=== PATIENT | female | born 1970 | race Caucasian/White ===

== ENCOUNTER → 2020-07-30 08:55 | Outpatient (CLI) | payer OTHER, SELFPAY ==
[2020-07-30 09:40] LABS: Add Manual Diff / Slide Review NO; Basophils Absolute Auto 0 /uL (0-100); Basophils Percent Auto 0.4 % (0-2); Eosinophils Absolute Auto 200 /uL (0-450); Eosinophils Percent Auto 2.9 % (2-4); Hematocrit 39.2 % (36-46); Hemoglobin 13.3 g/dL (12.0-16.0); Lymphocytes Absolute Auto 1700 /uL (1100-4500); Lymphocytes Percent Auto 27.7 % (25-40); Mean Corpuscular Hemoglobin 30.4 PG (26-34); Mean Corpuscular Volume 89.5 fL (80-100); Monocytes Absolute Auto 400 /uL (0-900); Monocytes Percent Auto 6.1 % (3-14); Neutrophils Absolute Auto 3900 /uL (1500-7000); Neutrophils Percent Auto 62.9 % (50-75); Platelet Count 227 X10^3/uL (150-400); Red Blood Cell Count 4.38 X10^6/uL (4.0-5.2); Red Cell Distribution Width 13.2 % (11.6-14.8); White Blood Cell Count 6.3 X10^3/uL (4.5-11.0)
[2020-07-30 09:57] LABS: Blood Urea Nitrogen 12 mg/dL (7-17); Calcium 9.5 mg/dL (8.4-10.2); Carbon Dioxide 31 mmol/L (22-32); Chloride 107 mmol/L (98-107); Cholesterol 194 mg/dL (140-199); Estimated Glomerular Filt Rate > 60.0 mL/min (>60); Glucose 92 mg/dL (70-100); HDL Cholesterol 43 mg/dL (40-60); HEMOLYSIS < 15 (0-50); LDL Cholesterol Calculated 129 mg/dL (<100); Potassium 4.8 mmol/L (3.4-5.1); Sodium 144 mmol/L (137-145); Triglycerides 112 mg/dL (35-150)
[2020-07-30 10:31] LABS: TSH w/ Reflex to FT4 2.01 uIU/mL (0.47-4.68)
== END ==
PROVIDERS: PCP Family Medicine; Referring Provider Family Medicine; Visit Provider Family Medicine
DX: Z13.220 Encounter for screening for lipoid disorders (principal); F32.5 Major depressive disorder, single episode, in full remission
CPT/HCPCS: 36415; 80048; 80061; 84443; 85025

== ENCOUNTER → 2021-01-04 14:57 | Outpatient (CLI) | payer OTHER, SELFPAY ==
[2021-01-04 16:33] LABS: COVID19 -Nasal RAPID Negative (Negative)
== END ==
PROVIDERS: PCP Family Medicine; Visit Provider Registered Nurse
DX: Z20.822 Contact with and (suspected) exposure to COVID-19 (principal)
CPT/HCPCS: 87635

== ENCOUNTER → 2021-01-14 07:28 | Outpatient (CLI) | payer OTHER, SELFPAY ==
[2021-01-14 08:10] LABS: Add Manual Diff / Slide Review NO; Basophils Absolute Auto 0 /uL (0-100); Basophils Percent Auto 0.4 % (0-2); Eosinophils Absolute Auto 100 /uL (0-450); Eosinophils Percent Auto 2.5 % (2-4); Hematocrit 39.7 % (36-46); Lymphocytes Absolute Auto 2000 /uL (1100-4500); Lymphocytes Percent Auto 34.1 % (25-40); Mean Corpuscular HGB Conc 32.7 % (30-36); Mean Corpuscular Volume 88.7 fL (80-100); Monocytes Absolute Auto 400 /uL (0-900); Monocytes Percent Auto 6.1 % (3-14); Neutrophils Absolute Auto 3400 /uL (1500-7000); Neutrophils Percent Auto 56.9 % (50-75); Platelet Count 234 X10^3/uL (150-400); Red Blood Cell Count 4.48 X10^6/uL (4.0-5.2); Red Cell Distribution Width 13.4 % (11.6-14.8)
[2021-01-14 08:26] LABS: Alanine Aminotransferase 17 IU/L (<35); Albumin 4.4 g/dL (3.5-5.0); Albumin Globulin Ratio 1.4 (1.0-2.8); Alkaline Phosphatase 56 U/L (38-126); Aspartate Aminotransferase 21 IU/L (14-36); BUN Creatinine Ratio 15.8 (6-22); Bilirubin Total 0.3 mg/dL (0.2-1.3); Blood Urea Nitrogen 12 mg/dL (7-17); Calcium 9.3 mg/dL (8.4-10.2); Carbon Dioxide 30 mmol/L (22-32); Chloride 106 mmol/L (98-107); Cholesterol 187 mg/dL (140-199); Estimated Glomerular Filt Rate > 60.0 mL/min (>60); Globulin 3.1 g/dL (1.7-4.1); Glucose 99 mg/dL (70-100); HDL Cholesterol 41 mg/dL (40-60); HEMOLYSIS < 15 (0-50); LDL Cholesterol Calculated 133 mg/dL (<100); Potassium 4.8 mmol/L (3.4-5.1); Sodium 141 mmol/L (137-145); Total Protein 7.5 g/dL (6.3-8.2); Triglycerides 67 mg/dL (35-150)
[2021-01-14 08:34] LABS: Rheumatoid Factor < 8.6 IU/mL (<12.0)
[2021-01-14 09:00] LABS: Free T4, Direct Thyroxine 0.78 ng/dL (0.78-2.19)
[2021-01-14 09:13] LABS: Thyroid Stimulating Hormone 1.81 uIU/mL (0.47-4.68)
[2021-01-17 17:51] LABS: ANA Screen, IFA Negative (.)
[2021-01-17 21:58] LABS: CCP Antibodies IgG/IgA 3 units (0-19)
== END ==
PROVIDERS: PCP Family Medicine; Referring Provider Family Medicine; Visit Provider Family Medicine
DX: M25.50 Pain in unspecified joint (principal); R53.83 Other fatigue
CPT/HCPCS: 36415; 80053; 80061; 84439; 84443; 84550; 85025; 86038; 86200; 86430; 86617

== ENCOUNTER → 2021-02-02 09:40 | Outpatient (CLI) | payer OTHER, SELFPAY ==
[2021-02-02 10:10] LABS: COVID19 -Nasal RAPID Negative (Negative)
== END ==
PROVIDERS: PCP Family Medicine; Visit Provider Student in an Organized Health Care Education/Training Program
DX: Z20.822 Contact with and (suspected) exposure to COVID-19 (principal)
CPT/HCPCS: 87635

== ENCOUNTER → 2021-04-09 11:03 | Outpatient (CLI) | payer OTHER, SELFPAY ==
[2021-04-09 12:10] LABS: COVID19 -Nasal RAPID Negative (Negative)
== END ==
PROVIDERS: PCP Family Medicine; Visit Provider Physician Assistant
DX: R19.7 Diarrhea, unspecified (principal)
CPT/HCPCS: 87635

== ENCOUNTER → 2021-04-09 11:13 | Outpatient (CLI) | payer OTHER, SELFPAY ==
[2021-04-09 11:31] LABS: Add Manual Diff / Slide Review NO; Basophils Absolute Auto 0 /uL (0-100); Basophils Percent Auto 0.4 % (0-2); Eosinophils Absolute Auto 100 /uL (0-450); Eosinophils Percent Auto 1.3 % (2-4); Hematocrit 40.5 % (36-46); Hemoglobin 13.3 g/dL (12.0-16.0); Lymphocytes Absolute Auto 1600 /uL (1100-4500); Lymphocytes Percent Auto 33.8 % (25-40); Mean Corpuscular Hemoglobin 29.2 PG (26-34); Mean Corpuscular Volume 88.6 fL (80-100); Monocytes Absolute Auto 400 /uL (0-900); Monocytes Percent Auto 7.8 % (3-14); Neutrophils Absolute Auto 2700 /uL (1500-7000); Neutrophils Percent Auto 56.7 % (50-75); Platelet Count 204 X10^3/uL (150-400); Red Blood Cell Count 4.57 X10^6/uL (4.0-5.2); Red Cell Distribution Width 13.9 % (11.6-14.8); White Blood Cell Count 4.8 X10^3/uL (4.5-11.0)
[2021-04-09 11:50] LABS: Alanine Aminotransferase 19 IU/L (<35); Albumin 4.3 g/dL (3.5-5.0); Albumin Globulin Ratio 1.3 (1.0-2.8); Alkaline Phosphatase 45 U/L (38-126); Aspartate Aminotransferase 25 IU/L (14-36); BUN Creatinine Ratio 14.5 (6-22); Bilirubin Total 0.3 mg/dL (0.2-1.3); Blood Urea Nitrogen 11 mg/dL (7-17); Calcium 9.4 mg/dL (8.4-10.2); Carbon Dioxide 28 mmol/L (22-32); Chloride 106 mmol/L (98-107); Estimated Glomerular Filt Rate > 60.0 mL/min (>60); Globulin 3.3 g/dL (1.7-4.1); Glucose 99 mg/dL (70-100); HEMOLYSIS < 15 (0-50); Lipase 77 U/L (23-300); Potassium 3.9 mmol/L (3.4-5.1); Sodium 140 mmol/L (137-145); Total Protein 7.6 g/dL (6.3-8.2)
== END ==
PROVIDERS: PCP Family Medicine; Referring Provider Physician Assistant; Visit Provider Physician Assistant
DX: R19.7 Diarrhea, unspecified (principal); Z20.822 Contact with and (suspected) exposure to COVID-19
CPT/HCPCS: 36415; 80053; 83690; 85025; 87635

== ENCOUNTER → 2021-04-11 07:20 | Outpatient (CLI) | payer OTHER, SELFPAY | PROVIDERS: PCP Family Medicine; Referring Provider Physician Assistant; Visit Provider Physician Assistant | DX: R19.7 Diarrhea, unspecified (principal) | CPT/HCPCS: 87045; 87177; 87899 ==

== ENCOUNTER → 2022-05-02 14:06 | Outpatient (CLI) | payer OTHER, SELFPAY | PROVIDERS: PCP Family Medicine; Visit Provider Physician Assistant | DX: R30.0 Dysuria (principal) | CPT/HCPCS: 87077; 87086; 87186 ==

== ENCOUNTER → 2022-08-21 07:30 | Outpatient (CLI) | payer OTHER, SELFPAY ==
--- NOTE | 2022-08-21 07:31 | DI.MG.S_ITS ---
BILATERAL DIGITAL SCREENING MAMMOGRAM 3D/2D WITH CAD: 08/21/2022 CLINICAL: Baseline by default. Family history of breast cancer. No prior exams were available for comparison. There are scattered areas of fibroglandular density in both breasts (category b / 25%-50% glandular tissue). Current study was also evaluated with a Computer Aided Detection (CAD) system. No significant masses, calcifications, or other findings are seen in either breast. IMPRESSION: NEGATIVE There is no mammographic evidence of malignancy. A 1 year screening mammogram is recommended. Based on the Tyrer Cuzick model (a risk assessment model) the patient's lifetime risk is 8.9% and her 10 year risk is 2.2%. According to the ACR, ACS, and NCCN guidelines, an annual breast MRI exam along with mammogram is recommended if the patient's lifetime risk is 20% or greater. This exam was interpreted at Station ID: [id number]. NOTE: For mammograms, a report in lay terms will be sent to the patient. Approximately 15% of breast malignancies will not be visualized mammographically. In the management of a palpable breast mass, a negative mammogram must not discourage biopsy of a clinically suspicious lesion. Electronically Signed By: Martha scales/trang:08/21/2022 11:49:28 letter sent: Normal Exam ACR BI-RADS Category 1: Negative 3341F
== END ==
PROVIDERS: PCP Family Medicine; Referring Provider Family Medicine; Visit Provider Family Medicine
DX: Z12.31 Encounter for screening mammogram for malignant neoplasm of breast (principal); Z80.3 Family history of malignant neoplasm of breast
CPT/HCPCS: 77063; 77067

== ENCOUNTER → 2022-09-25 15:44 | Outpatient (CLI) | payer OTHER, SELFPAY ==
[2022-09-25 16:27] LABS: COVID19 -Nasal RAPID Negative (Negative)
== END ==
PROVIDERS: PCP Family Medicine; Visit Provider Surgery
DX: Z01.812 Encounter for preprocedural laboratory examination (principal); Z20.822 Contact with and (suspected) exposure to COVID-19
CPT/HCPCS: 87635; C9803

== ENCOUNTER 2022-09-26 11:37 | Day surgery (SDC) | payer OTHER, SELFPAY ==
[2022-09-26] VITALS (7 sets, daily range): BP systolic 84–110; BP diastolic 51–72; PULSE 49–61; RESP 12–16; TEMP 36.1–36.7; O2SAT 97–100; BMI 30.7
--- NOTE | 2022-09-26 | PATH_ITS ---
[facility] Accession Number: [id number] . 01 Material submitted: . rectum - RECTAL POLYP . 01 Diagnosis: Rectal Polyp, Biopsy: Hyperplastic polyp. [facility] 09/29/2022 1625 Local . 01 Electronically signed: . Curt Hayes MD, PhD, Pathologist NPI- [id number] . 01 Gross description: . RECTAL POLYP: Received in formalin is 1 fragment(s) of lamb, soft tissue measuring 0.4 x 0.3 x 0.3 cm submitted entirely in 1 cassette(s) /CPE 09/27/2022 1107 Local . 01 Pathologist provided ICD-10: K62.1 . 01 CPT . 881019 Specimen Comment: A courtesy copy of this report has been sent to [phone] Performed at: 01 [facility] [address] [place] [address] [id number] MD Felix Major MD Phone: [phone]
[2022-09-26] MEDS: LACTATED RINGERS 1,000 ML 200 ML IV (12:02)
--- NOTE | 2022-09-26 12:56 | PM.HP.1 ---
History of Present Illness History of Present Illness Date Patient Seen: 09/26/22 Time Patient Seen: 12:56 Chief complaint: WIC Narrative: The patient presents for colorectal screening. They have never had any previous examination for such. No personal or family history of colon cancer. She recently had an episode of left lower quadrant pain suspected diverticulitis. She has occasional abdominal bloating but no blood per rectum no unintentional weight loss. Patient History Medical History Abdominal bloating Actinic keratoses (~2015) Acute right-sided thoracic back pain Arthralgia Costochondritis, acute Depression (~2011) Family history of breast cancer gene mutation in first degree relative Fatigue Foot pain (~2007) Malaise and fatigue Physical exam, annual Screening for breast cancer Screening for hyperlipidemia Seborrheic keratosis Segmental and somatic dysfunction of rib cage Thoracic region somatic dysfunction Tinea pedis Surgical History Anesthesia History of toe surgery (~08/2017) Family & Social History Family History Grandfather History of emphysema Grandmother Hypertension Grandfather Alzheimer's disease Parkinson's disease Social History: household members spouse Tobacco & Substance use: Smoking Status Former smoker alcohol intake current alcohol intake frequency holiday/special occasion Substance Use Type does not use Meds Home Medications and Allergies Home Medications Medication Instructions Recorded Confirmed Type sodium,potassium,mag sulfates 17.5 See Rx Instructions PO .COMPLEX 09/25/22 09/26/22 Rx gram-3.13 gram-1.6 gram oral soln #354 mL (Suprep Bowel Prep Kit) Allergies Allergy/AdvReac Type Severity Reaction Status Date / Time No Known Drug Allergies Allergy Verified 09/26/22 11:51 Exam Vital Signs (past 8 hours): - 09/26/22 11:57 Temperature 98.1 F Pulse Rate 61 Respiratory Rate 12 Blood Pressure 103/72 Pulse Oximetry 97 Oxygen Delivery Method Room Air Oxygen Delivery Method Room Air Narrative Exam Narrative: General adult woman alert oriented no acute distress Abdomen soft nontender nondistended Assessment & Plan Assessment & Plan narrative: The patient requires colorectal screening and colonoscopy is recommended. Technical details were discussed. Risks, benefits, alternatives explained. Risks including but not limited to myocardial infarction, aspiration, bleeding, pain, missed lesion, incomplete examination, need for further radiographic studies, colonic perforation, and need for major abdominal surgery were discussed. All questions were answered to their satisfaction, and they are in agreement with this plan. Time Spent With Patient Critical Care time: I spent a total of [] minutes of critical care time on this patient's care today; this time is exclusive of procedural time.
--- NOTE | 2022-09-26 13:37 | PM.OP.COLON ---
Operative Date/Time/Diagnoses Date of procedure: 09/26/22 Time of procedure: 13:37 Pre-op diagnosis: Screening colonoscopy Post-op diagnosis: same Procedure & Clinicians Study performed: Colonoscopy Same procedure as scheduled: Yes Indications: Screening Surgeon: Bassem Martinez Procedure Notes Procedure in detail: The history and physical was performed/updated and the patient is ASA class is 1. The procedure was discussed in detail with the patient. Potential risks complications including infection, bleeding, missed diagnosis, perforation, need for surgery, and were explained. Their questions were answered and informed consent was obtained. Patient was brought to the procedure room and placed standard monitoring equipment. The patient's vital signs were monitored continuously throughout the entire procedure. Prior to starting time-out was performed. The patient was placed in the left lateral recumbent position. Procedural sedation was administered by anesthesia. Examination began with a thorough inspection of the perianal area there was no evidence of fissures, fistulae, external hemorrhoids or cutaneous malignancy. The colonoscopy scope was then placed into the anal canal and was advanced to the cecum, which was identified by the ileocecal valve, the appendiceal orifice and the confluence of the taenia. The scope was then slowly withdrawn examining colon thoroughly in all directions, irrigating it of any residual stool. FINDINGS 1. Proximal rectum-5 mm pedunculated polyp removed with cold snare 2. Sigmoid mild diverticulosis The patient tolerated the procedure well. They will be discharged once criteria are met. The prep was of good/excellent quality. The withdrawl time was 7 minutes. Specimen(s): other (Rectal polyp) Complications: none Impression: Colonic polyp Post-procedure Recommendations: High fiber diet Plan for aftercare: Follow depending on pathology findings Disposition: same day surgery
== END 2022-09-26 14:53 | disposition home or self-care (01) ==
PROVIDERS: PCP Family Medicine; Referring Provider Surgery; Visit Provider Surgery
PROC: 0DJD8ZZ Inspection of Lower Intestinal Tract, Via Natural or Artificial Opening Endoscopic (ICD-10-PCS; CPT 45378; principal; 2022-09-26 12:45)
DX: Z12.11 Encounter for screening for malignant neoplasm of colon (principal); K57.30 Diverticulosis of large intestine without perforation or abscess without bleeding; K62.1 Rectal polyp
CPT/HCPCS: 45385; J2704

== ENCOUNTER → 2023-04-16 07:19 | Outpatient (CLI) | payer OTHER, SELFPAY ==
[2023-04-16 08:00] LABS: Add Manual Diff / Slide Review NO; Basophils Absolute Auto 0 /uL (0-100); Basophils Percent Auto 0.7 % (0-2); Eosinophils Absolute Auto 100 /uL (0-450); Eosinophils Percent Auto 1.5 % (2-4); Hematocrit 40.5 % (36-46); Hemoglobin 13.6 g/dL (12.0-16.0); Lymphocytes Absolute Auto 2000 /uL (1100-4500); Lymphocytes Percent Auto 36.4 % (25-40); Mean Corpuscular HGB Conc 33.6 % (30-36); Mean Corpuscular Hemoglobin 29.7 PG (26-34); Mean Corpuscular Volume 88.3 fL (80-100); Monocytes Absolute Auto 300 /uL (0-900); Monocytes Percent Auto 5.2 % (3-14); Neutrophils Absolute Auto 3000 /uL (1500-7000); Neutrophils Percent Auto 56.2 % (50-75); Platelet Count 219 X10^3/uL (150-400); Red Blood Cell Count 4.58 X10^6/uL (4.0-5.2); Red Cell Distribution Width 13.7 % (11.6-14.8); White Blood Cell Count 5.4 X10^3/uL (4.5-11.0)
[2023-04-16 08:37] LABS: Alanine Aminotransferase 29 IU/L (<35); Albumin 4.1 g/dL (3.5-5.0); Albumin Globulin Ratio 1.4 (1.0-2.8); Alkaline Phosphatase 51 U/L (38-126); Aspartate Aminotransferase 23 IU/L (14-36); BUN Creatinine Ratio 14.8 (6-22); Bilirubin Total 0.4 mg/dL (0.2-1.3); Blood Urea Nitrogen 12 mg/dL (7-17); Calcium 9.3 mg/dL (8.4-10.2); Carbon Dioxide 29 mmol/L (22-32); Chloride 104 mmol/L (98-107); Cholesterol 216 mg/dL (140-199); Estimated Glomerular Filt Rate > 60 mL/min (>60); Glucose 99 mg/dL (70-100); HDL Cholesterol 49 mg/dL (40-60); HEMOLYSIS < 15 (0-50); LDL Cholesterol Calculated 139 mg/dL (<100); Potassium 4.6 mmol/L (3.4-5.1); Sodium 140 mmol/L (137-145); Total Protein 7.1 g/dL (6.3-8.2); Triglycerides 141 mg/dL (35-150)
[2023-04-16 08:39] LABS: TSH w/ Reflex to FT4 2.69 uIU/mL (0.47-4.68)
== END ==
PROVIDERS: PCP Family Medicine; Referring Provider Family Medicine; Visit Provider Family Medicine
DX: Z13.220 Encounter for screening for lipoid disorders (principal); Z13.29 Encounter for screening for other suspected endocrine disorder; Z68.32 Body mass index [BMI] 32.0-32.9, adult
CPT/HCPCS: 36415; 80053; 80061; 84443; 85025

== ENCOUNTER 2023-09-04 11:48 | Emergency (ER) | payer OTHER, SELFPAY ==
[2023-09-04 11:55] VITALS: BP 165/95; PULSE 76; RESP 18; TEMP 36.8; O2SAT 99; BMI 30.9
--- NOTE | 2023-09-04 11:57 | DI.RAD.S_ITS ---
PROCEDURE: XR CHEST 1V INDICATIONS: chest pain TECHNIQUE: One view of the chest was acquired. COMPARISON: None. FINDINGS: Surgical changes and devices: None. Lungs and pleura: Lungs are clear. No pleural effusions or pneumothorax. Mediastinum: Mediastinal contours appear normal. Heart size is normal. Bones and chest wall: No suspicious bony lesions. Overlying soft tissues appear unremarkable. IMPRESSION: No acute cardiopulmonary process. Dictated by: Leonel Melendez M.D. on 09/04/2023 at 13:08 Approved by: Leonel Melendez M.D. on 09/04/2023 at 13:09
[2023-09-04 12:03] VITALS: PULSE 75; RESP 25
[2023-09-04 12:04] VITALS: BP 136/76; PULSE 76; RESP 16
[2023-09-04] MEDS: ASPIRIN 81 MG CHEW TAB 324 MG PO (12:12)
--- NOTE | 2023-09-04 12:13 | PC.NURSE ---
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
--- NOTE | 2023-09-04 12:19 | ED.CHESTPAIN ---
HPI - Chest Pain General Chief Complaint: Chest Pain Stated Complaint: chest pain Time Seen by Provider: 09/04/23 12:02 Source: patient Mode of arrival: Ambulatory Limitations: no limitations History of Present Illness HPI narrative: 53-year-old female with no reported past medical history presents by private vehicle for right-sided chest pain. Patient states that she has had intermittent chest pains over the last year on her right side, she stated that she promised her son should be evaluated the next time this happened. She was driving to school when she felt a pain in her right chest and neck tightness. Patient is currently pain-free. Patient states that the worst of the pain is between her spine and her scapula. Described as tight, nonradiating. Denies personal or family history of heart disease, never smoker, she gets annual blood work at her physicals and has always been given a clean bill of health. Patient underwent bilateral breast reduction 5 weeks prior, complicated by left breast hematoma. Left sided drain placed 2 weeks ago and subsequently removed Related Data Previous Rx's Medication Instructions Recorded nystatin 100,000 unit/gram topical 1 applic topical BID PRN rash #60 01/17/23 powder grams Allergies Allergy/AdvReac Type Severity Reaction Status Date / Time No Known Drug Allergies Allergy Verified 04/10/23 11:17 Review of Systems Review of Systems Narrative: CONSTITUTIONAL- Denies: fever, chills, fatigue HEENT- Denies: sore throat, nosebleed, vision changes RESPIRATORY- Denies: shortness of breath, cough, wheezing CARDIAC-reports: Chest pain Denies: edema, orthopnea GI- Denies: abdominal pain, nausea, vomiting, constipation, diarrhea - Denies: frequency, dysuria, hematuria, flank pain MSK- Denies: extremity pain, extremity swelling, joint pain, joint swelling SKIN- Denies: rash, itching, burn, swelling NEUROLOGICAL- Denies: headache, numbness, weakness, dizziness PSYCHIATRIC- Denies: anxiety, depression, suicidal ideation, homicidal ideation Patient History Medical History (Updated 09/04/23 @ 13:36 by Fifi Sierra MD) Symptoms, such as flushing, sleeplessness, headache, lack of concentration, associated with the menopause BMI 32.0-32.9,adult Abdominal pannus Strain of psoas muscle Left foot pain Large breasts Chronic neck pain Chronic left-sided thoracic back pain Rash and nonspecific skin eruption Screening for breast cancer Segmental and somatic dysfunction of rib cage Costochondritis, acute Abdominal bloating Malaise and fatigue Fatigue Arthralgia Physical exam, annual Seborrheic keratosis Foot pain (~2007) Screening for hyperlipidemia Actinic keratoses (~2015) Thoracic region somatic dysfunction Tinea pedis Depression (~2011) Family history of breast cancer gene mutation in first degree relative Surgical History Anesthesia History of toe surgery (~08/2017) Family History Grandfather History of emphysema Grandmother Hypertension Grandfather Alzheimer's disease Parkinson's disease Social History household members: spouse Smoking Status: Former smoker alcohol intake: current substance use type: does not use Smoking Status: Former smoker alcohol intake frequency: holidays/special occasions only Substance Use Type: does not use Exam Initial Vital Signs Initial Vital Signs: Vital Signs Temperature 98.3 F 09/04/23 11:55 Pulse Rate 76 09/04/23 11:55 Respiratory Rate 18 09/04/23 11:55 Blood Pressure 165/95 H 09/04/23 11:55 Pulse Oximetry 99 09/04/23 11:55 Oxygen Delivery Method Room Air 09/04/23 11:55 Const: Awake, alert, no acute distress, nontoxic appearing Eyes: PERRL, EOMI, conjunctiva normal ENT: Atraumatic, dentition normal, mucous membranes moist Cardiac: regular rate, regular rhythm RESP: unlabored, clear bilaterally, no wheezing GI: Atraumatic, soft, nontender, nondistended, no rebound, no guarding MSK: Atraumatic, full range of motion, pulses equal Skin: Warm, Dry, intact, no rashes Neuro: AO x3, CN II-XII grossly intact, moves all extremities Psych: affect normal, mood normal, not suicidal, not homicidal Scores HEART Score Heart Score history: Slightly Suspicious Heart Score EKG: Normal Heart Score Age: 45-64 years old Heart Score risk factors: 1-2 risk factors Heart Score troponin: < or = to normal limit Heart Score Total: 2 Course Course Course Narrative: Well-appearing patient with episode of right-sided chest pain, none currently. EKGs normal sinus rhythm without concerning findings. Heart score 2 based on age and BMI. Orders Ordered: ED Orders 09/04/23 11:57 XR chest 1V Stat 09/04/23 12:02 EKG-12 Lead Stat 09/04/23 12:12 Complete Blood Count AUTO DIFF Stat Comprehensive Metabolic Panel Stat Lipase Stat Magnesium Stat PTT Partial Thromboplastin Stanley Stat Prothrombin Time INR Stat Troponin & CK Cardiac Panel Stat Discontinued Medications Aspirin (Aspirin 81 Mg Chew Tab) 324 mg PO NOW ONE Stop: 09/04/23 11:58 Last Admin: 09/04/23 12:12 Dose: 243 mg Documented By: AMV Reevaluation(s) Reevaluation #1: Laboratory work is completely unremarkable. Chest x-ray negative for acute findings. Patient informed of all lab and imaging findings. Overall low-risk with heart score 2. Patient reassured of normal labs and normal imaging. She will call her primary care doctor's office and we will follow up with a personal loan specialist. Referral provided. ED return precautions discussed at bedside. Patient expressed understanding of the plan and is in agreement at this time. All questions answered at the time of discharge. Vital Signs Vital signs: Vital Signs - 8 hr 09/04/23 11:55 09/04/23 12:03 09/04/23 12:04 Temperature 98.3 F Pulse Rate 76 75 76 Respiratory Rate 18 25 H 16 Blood Pressure 165/95 H Pulse Oximetry 99 Oxygen Delivery Method Room Air 09/04/23 12:04 09/04/23 12:30 09/04/23 12:30 Temperature Pulse Rate 65 Respiratory Rate Blood Pressure 136/76 122/69 Pulse Oximetry 98 Oxygen Delivery Method 09/04/23 13:00 09/04/23 13:00 Temperature Pulse Rate 61 Respiratory Rate 16 Blood Pressure 110/68 Pulse Oximetry 98 Oxygen Delivery Method MDM - Chest Pain Differential Diagnosis Differential diagnosis: Likely fracture of rib, pneumothorax and atypical chest pain Lab Data 09/04/23 12:12 09/04/23 12:12 Labs: Lab Results 09/04/23 Range/Units 12:12 WBC 6.7 (4.5-11.0) X10^3/uL RBC 4.19 (4.0-5.2) X10^6/uL Hgb 12.4 (12.0-16.0) g/dL Hct 36.7 (36-46) % MCV 87.7 (80-100) fL MCH 29.5 (26-34) PG MCHC 33.6 (30-36) % RDW 14.1 (11.6-14.8) % Plt Count 215 (150-400) X10^3/uL Neut % (Auto) 63.9 (50-75) % Lymph % (Auto) 27.3 (25-40) % [place] % (Auto) 7.0 (3-14) % Eos % (Auto) 1.5 L (2-4) % Baso % (Auto) 0.3 (0-2) % Neut # (Auto) 4300 (5566-5987) /uL Lymph # (Auto) 1800 (0659-1621) /uL [place] # (Auto) 500 (0-900) /uL Eos # (Auto) 100 (0-450) /uL Baso # (Auto) 0 (0-100) /uL PT 12.0 (10.1-12.7) SECONDS INR 1.0 (0.9-1.3) APTT 34 (26-36) SECONDS Sodium 140 (137-145) mmol/L Potassium 3.6 (3.4-5.1) mmol/L Chloride 103 (98-107) mmol/L Carbon Dioxide 29 (22-32) mmol/L BUN 13 (7-17) mg/dL Creatinine 0.77 (0.52-1.04) mg/dL Estimated GFR > 60 (>60) mL/min BUN/Creatinine Ratio 16.9 (6-22) Glucose 82 (70-100) mg/dL Calcium 9.5 (8.4-10.2) mg/dL Magnesium 1.8 (1.6-2.3) mg/dL Total Bilirubin 0.3 (0.2-1.3) mg/dL AST 28 (14-36) IU/L ALT 29 (<35) IU/L Alkaline Phosphatase 53 (38-126) U/L Total Creatine Kinase 52 (30-135) U/L Troponin I < 0.012 (0.01-0.034) ng/mL Total Protein 7.7 (6.3-8.2) g/dL Albumin 4.4 (3.5-5.0) g/dL Globulin 3.3 (1.7-4.1) g/dL Albumin/Globulin Ratio 1.3 (1.0-2.8) Lipase 106 (23-300) U/L ECG Data Interpretation: Normal sinus rhythm rate 69 beats per minute. Normal axis, no ST T wave changes, no STEMI, normal WA intervals Discharge Plan Departure Patient Disposition: Home Clinical Impression: Chest pain Qualifiers: Chest pain type: unspecified Qualified Code(s): R07.9 - Chest pain, unspecified Instructions: DI for Chest Pain Prescriptions: No Action nystatin 100,000 unit/gram powder 1 applic topical BID PRN (Reason: rash) Qty: 60 5RF Referrals: Jocelynn Fraser DO [Physician] - Zachary Franoc DO [Primary Care Provider] - Stand Alone Forms: Patient Portal/API
[2023-09-04 12:21] LABS: Add Manual Diff / Slide Review NO; Basophils Absolute Auto 0 /uL (0-100); Basophils Percent Auto 0.3 % (0-2); Eosinophils Absolute Auto 100 /uL (0-450); Eosinophils Percent Auto 1.5 % (2-4); Hematocrit 36.7 % (36-46); Hemoglobin 12.4 g/dL (12.0-16.0); Lymphocytes Absolute Auto 1800 /uL (1100-4500); Lymphocytes Percent Auto 27.3 % (25-40); Mean Corpuscular HGB Conc 33.6 % (30-36); Mean Corpuscular Hemoglobin 29.5 PG (26-34); Mean Corpuscular Volume 87.7 fL (80-100); Monocytes Absolute Auto 500 /uL (0-900); Neutrophils Absolute Auto 4300 /uL (1500-7000); Neutrophils Percent Auto 63.9 % (50-75); Platelet Count 215 X10^3/uL (150-400); Red Blood Cell Count 4.19 X10^6/uL (4.0-5.2); Red Cell Distribution Width 14.1 % (11.6-14.8); White Blood Cell Count 6.7 X10^3/uL (4.5-11.0)
[2023-09-04 12:30] VITALS: BP 122/69; PULSE 65; O2SAT 98
[2023-09-04 12:31] LABS: PTT Partial Thromboplastin Tim 34 SECONDS (26-36)
[2023-09-04 12:33] LABS: Alanine Aminotransferase 29 IU/L (<35); Albumin 4.4 g/dL (3.5-5.0); Albumin Globulin Ratio 1.3 (1.0-2.8); Alkaline Phosphatase 53 U/L (38-126); Aspartate Aminotransferase 28 IU/L (14-36); BUN Creatinine Ratio 16.9 (6-22); Bilirubin Total 0.3 mg/dL (0.2-1.3); Blood Urea Nitrogen 13 mg/dL (7-17); Calcium 9.5 mg/dL (8.4-10.2); Carbon Dioxide 29 mmol/L (22-32); Chloride 103 mmol/L (98-107); Creatine Kinase 52 U/L (30-135); Estimated Glomerular Filt Rate > 60 mL/min (>60); Globulin 3.3 g/dL (1.7-4.1); Glucose 82 mg/dL (70-100); HEMOLYSIS < 15 (0-50); Lipase 106 U/L (23-300); Magnesium 1.8 mg/dL (1.6-2.3); Potassium 3.6 mmol/L (3.4-5.1); Sodium 140 mmol/L (137-145); Total Protein 7.7 g/dL (6.3-8.2)
[2023-09-04 12:45] LABS: Troponin I < 0.012 ng/mL (0.01-0.034)
[2023-09-04 13:00] VITALS: BP 110/68; PULSE 61; RESP 16; O2SAT 98
== END 2023-09-04 13:46 | disposition home or self-care (01) ==
PROVIDERS: Emergency Provider Emergency Medicine; PCP Family Medicine
DX: R07.9 Chest pain, unspecified (principal)
CPT/HCPCS: 36415; 71045; 80053; 82550; 83690; 83735; 84484; 85025; 85610; 85730; 93005; 99284

== ENCOUNTER → 2023-11-15 08:07 | Outpatient (CLI) | payer OTHER, SELFPAY ==
--- NOTE | 2023-11-15 08:08 | DI.MG.S_ITS ---
BILATERAL DIGITAL SCREENING MAMMOGRAM 3D/2D WITH CAD: 11/15/2023 CLINICAL: Routine screening. Family history of breast cancer. Comparison is made to exam dated: 08/21/2022 mammogram - [facility]. There are scattered areas of fibroglandular density in both breasts (category b / 25%-50% glandular tissue). Current study was also evaluated with a Computer Aided Detection (CAD) system. The patient is status post reduction both breasts. No significant masses, calcifications, or other findings are seen in either breast. IMPRESSION: NEGATIVE There is no mammographic evidence of malignancy. A 1 year screening mammogram is recommended. Based on the Tyrer Cuzick model (a risk assessment model) the patient's lifetime risk is 8.8% and her 10 year risk is 2.3%. According to the ACR, ACS, and NCCN guidelines, an annual breast MRI exam along with mammogram is recommended if the patient's lifetime risk is 20% or greater. This exam was interpreted at Station ID: [id number]. NOTE: For mammograms, a report in lay terms will be sent to the patient. Approximately 15% of breast malignancies will not be visualized mammographically. In the management of a palpable breast mass, a negative mammogram must not discourage biopsy of a clinically suspicious lesion. Electronically Signed By: Nico ho/trang:11/15/2023 12:51:25 letter sent: Normal Exam ACR BI-RADS Category 1: Negative 3341F
== END ==
LOC: MAMMO 08:07
PROVIDERS: PCP Family Medicine; Referring Provider Family Medicine; Visit Provider Family Medicine
DX: Z12.31 Encounter for screening mammogram for malignant neoplasm of breast (principal); Z80.3 Family history of malignant neoplasm of breast; R92.323 Mammographic fibroglandular density, bilateral breasts
CPT/HCPCS: 77063; 77067

== ENCOUNTER → 2024-07-14 07:22 | Outpatient (CLI) | payer OTHER, SELFPAY ==
[2024-07-14 08:09] LABS: Hematocrit 39.8 % (36-46); Hemoglobin 13.3 g/dL (12.0-16.0); Mean Corpuscular HGB Conc 33.3 % (30-36); Mean Corpuscular Hemoglobin 29.4 PG (26-34); Mean Corpuscular Volume 88.1 fL (80-100); Platelet Count 231 X10^3/uL (150-400); Red Blood Cell Count 4.52 X10^6/uL (4.0-5.2); Red Cell Distribution Width 13.9 % (11.6-14.8); White Blood Cell Count 6.4 X10^3/uL (4.5-11.0)
[2024-07-14 08:24] LABS: Hemoglobin A1C% w Est Avg Glu 5.2 % (4.0-6.0)
[2024-07-14 08:35] LABS: Alanine Aminotransferase 15 IU/L (<35); Albumin 4.3 g/dL (3.5-5.0); Albumin Globulin Ratio 1.7 (1.0-2.8); Alkaline Phosphatase 57 U/L (38-126); Aspartate Aminotransferase 20 IU/L (14-36); BUN Creatinine Ratio 14.7 (6-22); Bilirubin Total 0.5 mg/dL (0.2-1.3); Blood Urea Nitrogen 11 mg/dL (7-17); Calcium 9.4 mg/dL (8.4-10.2); Carbon Dioxide 23 mmol/L (22-32); Chloride 108 mmol/L (98-107); Cholesterol 216 mg/dL (140-199); Estimated Glomerular Filt Rate > 60 mL/min (>60); Globulin 2.6 g/dL (1.7-4.1); Glucose 97 mg/dL (70-100); HDL Cholesterol 49 mg/dL (40-60); HEMOLYSIS < 15 (0-50); LDL Cholesterol Calculated 146 mg/dL (<100); Potassium 4.4 mmol/L (3.4-5.1); Sodium 140 mmol/L (137-145); Total Protein 6.9 g/dL (6.3-8.2); Triglycerides 107 mg/dL (35-150)
[2024-07-14 09:09] LABS: Testosterone 46.3 ng/dL (5.71-77.0)
[2024-07-16 12:10] LABS: QuantiFERON Mitogen Value >10.00 IU/mL (.); QuantiFERON Nil Value 0.01 IU/mL (.); QuantiFERON TB Gold Plus Negative (Negative); QuantiFERON TB1 Ag Value 0.03 IU/mL (.)
== END ==
LOC: LAB 07:24
PROVIDERS: PCP Family Medicine; Referring Provider Obstetrics & Gynecology; Visit Provider Obstetrics & Gynecology
DX: Z13.1 Encounter for screening for diabetes mellitus (principal); Z13.220 Encounter for screening for lipoid disorders; N95.1 Menopausal and female climacteric states; Z11.1 Encounter for screening for respiratory tuberculosis
CPT/HCPCS: 36415; 80053; 80061; 83036; 84403; 84443; 85027; 86480

== ENCOUNTER → 2024-10-08 09:18 | Outpatient (CLI) | payer OTHER, SELFPAY ==
--- NOTE | 2024-10-08 | DI.US.S_ITS ---
PROCEDURE: US PELVIC COMPLETE INDICATIONS: Postmenopausal bleeding TECHNIQUE: Real-time scanning was performed of the pelvic organs, with image documentation. Additional endovaginal scanning was necessary due to incomplete visualization of the adnexal and endometrial structures by transabdominal scanning. COMPARISON: None. FINDINGS: Uterus: Uterus is retro and normal in size at 7.1 x 4.4 x 5.4 cm. The myometrium is homogeneous. The endometrium measures 4.8 mm combined thickness. Ovaries: The right ovary measures 2.4 x 1.1 x 2.1 cm, with a calculated ovarian volume of 3 cc. The left ovary measures 1.1 x 2.4 x 1.5 cm, with a calculated ovarian volume of 2 cc. The ovaries have a normal sonographic appearance. Less than 12 follicles can be seen in each ovary. No adnexal masses are seen. Other: No pathologic free abdominal or pelvic fluid. IMPRESSION: Endometrium measures 4.8 millimeter in thickness, borderline dilated in the setting of postmenopausal bleeding. Tissue sampling could be considered, versus serial monitoring. We strive to produce accurate, complete, and clear reports of imaging services. To assist us in improving patient care, this report was composed using standard report templates and voice recognition software. Therefore, it may contain abnormal punctuation, insertions and/or omissions. Occasional wrong-word or sound-alike substitutions may occur. Though we review the report and make efforts to correct it, we do recommend that the report be read carefully in proper context to recognize any text inaccuracies. Dictated by: Thien Magallon M.D. on 10/09/2024 at 10:55 Approved by: Thien Magallon M.D. on 10/09/2024 at 10:57
== END ==
PROVIDERS: PCP Family Medicine; Referring Provider Obstetrics & Gynecology; Visit Provider Obstetrics & Gynecology
DX: N95.0 Postmenopausal bleeding (principal); Z79.890 Hormone replacement therapy
CPT/HCPCS: 76830; 76856

== ENCOUNTER 2024-10-30 10:00 | Emergency (ER) | payer OTHER, SELFPAY ==
[2024-10-30 10:13] VITALS: BP 141/67; PULSE 67; RESP 14; TEMP 36.5; O2SAT 98; BMI 30.9
[2024-10-30 12:56] VITALS: O2SAT 91
[2024-10-30 12:57] VITALS: BP 141/99; PULSE 63; O2SAT 98
[2024-10-30 13:00] VITALS: BP 140/93; PULSE 58; O2SAT 98
--- NOTE | 2024-10-30 13:26 | ED.GENADULT ---
HPI - General Adult General Chief complaint: Eye Problems Stated complaint: Possible detached retina Time Seen by Provider: 10/30/24 13:03 Mode of arrival: Ambulatory History of Present Illness HPI narrative: [age] year old woman with visual symptoms since the . Initially started with some flashes laterally on the left side. Those symptoms have continued with a sensation that her eye is irritated, she did not notice overt visual changes. She contacted her ophthalmology office which is closed until November 07 they recommended ER evaluation. She has never had eye issues previously. No recent fever, cough, chills, headaches, nausea, vomiting or diarrhea Related Data Previous Rx's Medication Instructions Recorded estradiol 0.01% (0.1 mg/gram) 1 g vaginal 2XW UTI prophylaxis 02/29/24 vaginal cream #42.5 grams Allergies Allergy/AdvReac Type Severity Reaction Status Date / Time No Known Drug Allergies Allergy Verified 10/30/24 10:13 Review of Systems Review of Systems Narrative: Pertinent positive and negative findings as per HPI Patient History Medical History (Updated 10/30/24 @ 13:49 by Kristen Bagley MD) Shoulder pain Symptoms, such as flushing, sleeplessness, headache, lack of concentration, associated with the menopause BMI 32.0-32.9,adult Abdominal pannus Strain of psoas muscle Left foot pain Chronic neck pain Chronic left-sided thoracic back pain Rash and nonspecific skin eruption Screening for breast cancer Segmental and somatic dysfunction of rib cage Costochondritis, acute Abdominal bloating Malaise and fatigue Fatigue Arthralgia Physical exam, annual Seborrheic keratosis Foot pain (~2007) Screening for hyperlipidemia Actinic keratoses (~2015) Thoracic region somatic dysfunction Tinea pedis Depression (~2011) Family history of breast cancer gene mutation in first degree relative Surgical History (Updated 05/06/24 @ 17:21 by Zachary Franco DO) History of bilateral breast reduction surgery Anesthesia History of toe surgery (~08/2017) Family History Grandfather History of emphysema Grandmother Hypertension Grandfather Alzheimer's disease Parkinson's disease Social History household members: spouse Smoking Status: Former smoker alcohol intake: current substance use type: does not use Smoking Status: Former smoker alcohol intake frequency: holidays/special occasions only Exam Initial Vital Signs Initial Vital Signs: Vital Signs Temperature 97.7 F 10/30/24 10:13 Pulse Rate 67 10/30/24 10:13 Respiratory Rate 14 10/30/24 10:13 Blood Pressure 141/67 H 10/30/24 10:13 Pulse Oximetry 98 10/30/24 10:13 Oxygen Delivery Method Room Air 10/30/24 10:13 General: Alert appropriate in no acute distress Eye exam: With nondilated retinal exam there does appear to be darker band laterally. The optic nerve and vessels coming from it appear appropriate. Respiratory: Able to speak in full sentences, no obvious respiratory distress Skin: No obvious rashes, warm and dry Neurologic: Grossly intact no obvious asymmetries or abnormalities Psych: appropriate insight and affect, cooperative Bedside ultrasound of the eye does not show obvious retinal detachment Course Vital Signs Vital signs: Vital Signs - 8 hr 10/30/24 10:13 Temperature 97.7 F Pulse Rate 67 Respiratory Rate 14 Blood Pressure 141/67 H Pulse Oximetry 98 Oxygen Delivery Method Room Air Medical Decision Making [facility] Narrative Medical decision making narrative: 54-year-old woman with left lateral flashes and slight blurred vision since the . Clinical history is significant with retinal detachment. No evidence of foreign body, increased pressure, anterior chamber abnormalities. Visual acuity is 20/ 70 on the left and 20/25 on the right On limited exam in the emergency department I do not see dramatic abnormalities there does appear to be a increased band of darker color laterally with direct ophthalmoscope exam in a nondilated pupil. Bedside ultrasound does not show significant retinal detachment Discussion with anastasia alcantara, doctor recommends more urgent outpatient evaluation. He will be able to see her in clinic as soon as she is able to get there. 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 I spoke with , system safety manager with [facility] in [place]. He would like you to come over to their office right now for more definitive evaluation. 1928 [facility] Prescriptions: No Action estradiol 0.01 % (0.1 mg/gram) cream 1 g vaginal 2XW Qty: 42.5 3RF Rx Instructions: Apply around urethra initially daily for 1-2 weeks then space to twice a week for maintenance. Referrals: Zachary Franco DO [Primary Care Provider] - Stand Alone Forms: Patient Portal/API/Survey
[2024-10-30 13:30] VITALS: PULSE 54; O2SAT 98
[2024-10-30 13:31] VITALS: PULSE 54; O2SAT 96
== END 2024-10-30 13:57 | disposition home or self-care (01) ==
PROVIDERS: Emergency Provider Emergency Medicine; PCP Family Medicine
DX: H33.22 Serous retinal detachment, left eye (principal)
CPT/HCPCS: 99281; 99282

== ENCOUNTER → 2025-04-18 07:32 | Outpatient (CLI) | payer OTHER, SELFPAY ==
[2025-04-18 10:01] LABS: Cholesterol 198 mg/dL (140-199); HDL Cholesterol 55 mg/dL (40-60); LDL Cholesterol Calculated 130 mg/dL (<100); Triglycerides 63 mg/dL (35-150)
== END ==
PROVIDERS: PCP Family Medicine; Referring Provider Family Medicine; Visit Provider Family Medicine
DX: E78.2 Mixed hyperlipidemia (principal)
CPT/HCPCS: 80061

== ENCOUNTER → 2025-04-24 11:00 | Outpatient (CLI) | payer OTHER, SELFPAY ==
--- NOTE | 2025-04-24 11:01 | DI.MRI.S_ITS ---
PROCEDURE: MR KNEE LT WO CON INDICATIONS: left knee pain TECHNIQUE: Noncontrast sagittal PD fast spin echo and T2 fast spin echo with fat saturation, sagittal 3-D FLASH with fat saturation; coronal T1 spin echo and PD fast spin echo with fat saturation, and axial PD fast spin echo with fat saturation through the knee. COMPARISON: None. FINDINGS: Image quality: Excellent. Menisci: The medial and lateral menisci demonstrate normal morphology and internal signal. The meniscal root ligaments appear intact. Cruciate ligaments: The anterior and posterior cruciate ligaments appear intact. Medial structures: The medial collateral ligament appears intact. The posterior oblique ligament, semimembranosus tendon insertions, oblique popliteal ligament, and meniscocapsular junction appear intact. Visualized portions of the pes anserinus tendons appear normal. No abnormal bursal fluid. Lateral structures: The lateral collateral ligament, long and short heads of the biceps femoris tendon appear intact. The popliteus tendon appears normal; the popliteofibular ligament appears intact. The posterosuperior and anteroinferior popliteomeniscal fascicles appear intact. The arcuate and fabellofibular ligaments appear intact, on either side of the lateral inferior geniculate artery. Iliotibial band appears normal. Anterior structures: The quadriceps and patellar tendons appear intact. Mild lateral tilt of the patella. Mild Hoffa's fat pad edema. The medial and lateral patellofemoral ligaments are intact. Bones and cartilage: Mild chondrosis of the patellofemoral compartment, with mild chondral irregularity in the patella. Focal full-thickness chondral loss in the medial trochlea. Mild chondrosis of the medial compartment with mild chondral irregularity in the medial aspect of weight-bearing portion of medial femoral condyle. Mild chondrosis of the lateral compartment with multifocal high-signal full-thickness chondral fissuring in the weight-bearing portion of the lateral femoral condyle. No acute fracture. Joint space: Large knee effusion. Moderate sized, partially ruptured popliteal cyst. Popliteal vasculature is unremarkable. Marked fat edema posterior to the distal femur, of unclear etiology , partially visualized in the superior aspect. IMPRESSION: 1. Mild, patellofemoral compartment predominant chondrosis. 2. Large knee effusion. 3. Moderate sized, partially ruptured popliteal cyst. 4. Marked fat edema posterior to the distal femur, of unclear etiology, partially visualized in the superior aspect. Dictated by: Celina Albrecht M.D. on 04/24/2025 at 11:55 Approved by: Celina Albrecht M.D. on 04/24/2025 at 12:05
== END ==
PROVIDERS: PCP Family Medicine; Referring Provider Family Medicine; Visit Provider Family Medicine
DX: M66.0 Rupture of popliteal cyst (principal); M25.462 Effusion, left knee; M22.42 Chondromalacia patellae, left knee; M25.562 Pain in left knee
CPT/HCPCS: 73721

== ENCOUNTER → 2025-05-20 07:57 | Outpatient (CLI) | payer OTHER, SELFPAY ==
--- NOTE | 2025-05-20 07:58 | DI.MG.S_ITS ---
MM screening mammo BI: 05/20/2025. BI-RADS: 1 CLINICAL: 55-year old female for bilateral screening mammogram. Tyrer-Cuzick lifetime risk of 16.0%. Current reported family history of breast cancer: mother and maternal aunt. The patient is status-post reduction mammoplasty. PRIOR EXAMS 11/15/2023, 08/21/2022. MAMMOGRAPHY TECHNIQUE: 2D and 3D (tomosynthesis) digital mammographic views obtained, with additional images as needed for full coverage. Current study was also evaluated with a Computer Aided Detection (CAD) system. DENSITY A. The breasts are almost entirely fatty. MAMMOGRAPHY FINDINGS Bilateral: No suspicious mass, asymmetry, microcalcification, or other abnormality seen. IMPRESSION: * No evidence of malignancy. RECOMMENDATIONS Bilateral * Annual screening mammography. OVERALL ASSESSMENT CATEGORY BI-RADS-1: Negative. The [employer] recommends annual screening mammography beginning at age 40 for women with average risk of breast cancer. ELECTRONICALLY SIGNED: Anabelle Kathleen M.D. on 05/20/2025 at 09:07:24 PM PT Interpreting Station ID: [id number]
== END ==
PROVIDERS: PCP Family Medicine; Referring Provider Family Medicine; Visit Provider Family Medicine
DX: Z12.31 Encounter for screening mammogram for malignant neoplasm of breast (principal); Z80.3 Family history of malignant neoplasm of breast; R92.313 Mammographic fatty tissue density, bilateral breasts
CPT/HCPCS: 77063; 77067